=== PATIENT | female | born 1970 | race Hispanic/Latino ===

== ENCOUNTER 2018-06-01 08:26 | Day surgery (SDC) | payer OTHER ==
[2018-05-31 15:52] LABS: Absolute Lymphocytes (CBC) 2.9 K/uL (0.7-4.9); Absolute Monocytes 0.6 K/uL (0.1-1.3); Absolute Neutrophil 8.5 K/uL (1.8-8.0); Hematocrit 43.6 % (36.0-45.0); Lymphocytes % 23.8 % (15.3-44.8); MCH 30.1 pg (27.0-35.0); MCV 87.7 fL (80-100); MPV 10.5 fL (7.6-11.3); Monocytes % 5.4 % (3.3-12.3); RBC Red Blood Cell Count 4.97 M/uL (3.86-4.86)
[2018-06-01] MEDS ORDERED: Ringers Lactate 1,000 ML IV ONE (08:40)
[2018-06-01] MEDS: CEFAZOLIN/SWI 1gm 1 GM/10 ML SYR ONE ×2 (10:04→10:35)
[2018-06-01] MEDS ORDERED: FENTANYL CITR 100 MCG/2 ML ONE (10:15)
[2018-06-01] MEDS ORDERED: PROPOFOL 200 MG/20 ML VIAL IV ONE (10:15)
[2018-06-01] MEDS ORDERED: MIDAZOLAM HCL 2 MG/2 ML INJ ONE (10:15)
[2018-06-01] MEDS ORDERED: LIDOCAINE 2% MPF 5 ML VIAL ONE (10:15)
[2018-06-01] MEDS ORDERED: ONDANSETRON HCL 40 MG/20 ML VIAL ONE (10:18)
[2018-06-01] MEDS ORDERED: KETOROLAC 30 MG/ML INJ ONE (11:16)
[2018-06-01] MEDS ORDERED: MEPERIDINE HCL 50 MG/ML AMP ONE (12:04)
[2018-06-01 12:53] VITALS: BP 128/64; TEMP 97.7; O2SAT 100
[2018-06-01] MEDS ORDERED: HYDROCODONE/APAP 7.5/325 MG TAB ONE (12:53)
--- NOTE | 2018-06-01 15:53 | OP ---
Date of Procedure: 06/01/2018 Surgeon: Jad Ca MD Preoperative Diagnoses: Left temporal headaches, vision change, rule out temporal arteritis. Postoperative Diagnoses: Left temporal headaches, vision change, rule out temporal arteritis. Procedure: Left temporal artery biopsy, Doppler-guided. Estimated Blood Loss: Minimal. Specimens: Left temporal artery. Findings: As above. Anesthesia: General. Complications: None. Disposition: The patient tolerated the procedure in stable condition and taken to Recovery in good g eneral condition. Procedure In Detail: The patient was brought to the OR and placed in supine position. General anest hesia was begun. The patient was prepped and draped in the sterile fashion. Marcaine 0.5% was infil trated locally. Doppler device used to locate the left temporal artery. Approximately a 3.5 cm inci lisa made anterior superior to the left ear. Subcu tissue divided and then temporal artery identifie d, confirmed again with Doppler, and the proximal and distal control obtained, tied with 4-0 silk, a 3.5 cm segment, excised, sent to Pathology. Wound irrigated. Bleeding controlled with cautery, 4-0 chromic used to approximate subcutaneous tissue and close the skin. Sterile dressing was applied. The patient was awakened and taken to Recovery in good general conditi on. /MODL Voice ID: [id number] Report ID: [id number]
--- NOTE | 2018-06-01 15:56 | DS ---
Date of Discharge: 06/01/2018 Discharge Note: The patient will go to Day Surgery and home when stable. Disposition: Home. Condition: Stable. Discharge Instructions: Resume home medications and diet. Activity as tolerated. No heavy lifting. Remove outer dressing in 2 days. Shower. Keep wound clean and dry. Keep Steri-Strips on all time s. Follow up in my office 2 weeks. Call for appointment. Follow up with PCP 1 week. Tylenol No. 3 one tablet p.o. q.4 p.r.n. pain. /MODL Voice ID: [id number] Report ID: [id number]
== END 2018-06-01 13:15 | disposition home or self-care (01) ==
LOC: OR 08:26
PROVIDERS: ATTEND Surgery
PROC: 03BT0ZX Excision of Left Temporal Artery, Open Approach, Diagnostic (ICD-10-PCS; principal; 2018-06-01 10:00)
DX: R51 Headache (principal); H53.9 Unspecified visual disturbance; I10 Essential (primary) hypertension
CPT/HCPCS: 36415; 80048; 85025; 88305; J0690; J2175; J2250; J2405; J3010